=== PATIENT | male | born 2000 | race Caucasian/White ===

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

== ENCOUNTER 2020-05-02 18:18 | Emergency (ER) | payer OTHER ==
[2020-05-02 18:26] VITALS: RESP 18
[2020-05-02] MEDS ORDERED: IBUPROFEN 600 MG STARTER PACK 4 TAB BTL PO STA (18:33)
--- NOTE | 2020-05-02 19:08 | ED ---
Lower Extremity Injury HPI - General Chief Complaint: Extremity Injury, Lower Stated Complaint: R ankle/Foot injury Time Seen by Provider: 05/02/20 18:28 Source: patient Mode of arrival: ambulatory Limitations: no limitations - History of Present Illness Initial Comments: 20-year-old male patient presents to the emergency department today for evaluation of right ankle pain and swelling. Patient states that around 2:00 this afternoon he was in the backyard, and child was falling so he went to grab the child, slipped, and injured the right ankle. Patient states that the toe of his boot touched his hunter. Patient states he has had increased pain and swelling since the injury. He did take tylenol, elevated, and applied ice. He denies hitting his head, losing consciousness, or injury to the neck. Denies any numbness to the right. States he does have some tingling to the toes. States he did have a growth plate fracture to this foot as a child. Patient denies any headache, chest pain, shortness of breath, dizziness, weakness, abdominal pain, nausea, vomiting, or difficulties with bowel movements or urination. - Related Data Previous Rx's Medication Instructions Recorded Acetaminophen-Codeine 300-30mg 1 tab PO Q6H PRN #10 tablet 11/09/17 [Tylenol #3] Sulfamethox-Tmp 800-160Mg [Bactrim 2 tab PO Q12HR #40 tab 11/09/17 DS 800-160 mg] Docusate [Colace] 100 mg PO BID #20 capsule 11/16/17 HYDROcodone/APAP 7.5-325MG [[place] 1 each PO Q4H PRN #30 tab 11/16/17 7.5] Ibuprofen [Motrin] 600 mg PO Q8HR PRN #30 tab 10/16/18 Sulfamethoxazole/Trimethoprim 1 each PO BID #20 tablet 10/16/18 [Bactrim DS 800-160 mg] Odgrkajk-Rmxhgiutx-Df Otic 2 drops RIGHT EAR TID #1 bottle 06/23/19 [Cortisporin Otic Soln] Ibuprofen [Motrin] 600 mg PO Q8HR PRN #30 tab 05/02/20 Allergies Allergy/AdvReac Type Severity Reaction Status Date / Time No Known Allergies Allergy Verified 05/02/20 18:26 Review of Systems ROS Statement: Those systems with pertinent positive or pertinent negative responses have been documented in the HPI. ROS Other: All systems not noted in ROS Statement are negative. Past Medical History Past Medical History: Asthma, Hyperlipidemia, Hypertension Additional Past Medical History / Comment(s): ACTIVITY INDUCED ASTHMA, TRAUMATIC BRAIN INJURY AGE 15, SOME DEMEANOR CHANGES, SLIGHT SHORT TERM MEMORY LOSS History of Any Multi-Drug Resistant Organisms: None Reported Past Surgical History: Adenoidectomy, Appendectomy, Ear Surgery, Tonsillectomy Additional Past Surgical History / Comment(s): brain surgery (CRAINIOTOMY) Past Anesthesia/Blood Transfusion Reactions: Previous Problems w/ Anesthesia Additional Past Anesthesia/Blood Transfusion Reaction / Comment(s): MOM STATES WAKES UP ANGRY Past Psychological History: ADD/ADHD Smoking Status: Current some day smoker Past Alcohol Use History: None Reported Past Drug Use History: Marijuana - Past Family History Mother Family Medical History: No Reported History General Exam Limitations: no limitations General appearance: alert, in no apparent distress, other (This is a well- developed, well-nourished adult male patient in no acute distress. Vital signs upon presentation are temperature 98.5F, pulse 77, respirations 18, blood pressure 165/100, pulse ox 100% on room air.) Eye exam: Present: normal appearance, PERRL, EOMI. Absent: scleral icterus, conjunctival injection, periorbital swelling ENT exam: Present: normal exam, normal oropharynx, mucous membranes moist Neck exam: Present: normal inspection, full ROM, other (Nontender, no step-off, no deformity to firm midline palpation of the posterior cervical spine. Full range of motion without pain or limitation.). Absent: tenderness, meningismus, lymphadenopathy Respiratory exam: Present: normal lung sounds bilaterally. Absent: respiratory distress, wheezes, rales, rhonchi, stridor Cardiovascular Exam: Present: regular rate, normal rhythm, normal heart sounds. Absent: systolic murmur, diastolic murmur, rubs, gallop, clicks GI/Abdominal exam: Present: soft, normal bowel sounds. Absent: distended, tenderness, guarding, rebound, rigid Extremities exam: Present: full ROM, tenderness (Dorsal foot tenderness, bilateral malleoli or tenderness.), normal capillary refill, other (There is soft tissue swelling noted surrounding the right ankle, ecchymosis noted to the dorsal foot. Skin is otherwise pink, warm, dry. Cap refills less than 3 second s. Pedal and posttibial pulses are 2+.). Absent: normal inspection, pedal edema, joint swelling, calf tenderness Back exam: Present: normal inspection, other (Nontender, no step-off, no deformity to firm midline palpation of the thoracic and lumbar vertebrae. Full range of motion without pain or limitation.) Neurological exam: Present: alert, oriented X3, CN II-XII intact Psychiatric exam: Present: normal affect, normal mood Skin exam: Present: warm, dry, intact, normal color. Absent: rash Course Vital Signs 05/02/20 05/02/20 18:22 19:32 Temperature 98.5 F 99.2 F Pulse Rate 77 68 Respiratory 18 18 Rate Blood Pressure 165/100 161/87 O2 Sat by Pulse 100 99 Oximetry Medical Decision Making - Medical Decision Making 20-year-old male patient presented to the emergency department today for evaluation of right ankle and foot pain as well as soft tissue swelling. Patient did have an injury around 2 PM. Physical examination did reveal soft tissue swelling surrounding the right ankle with tenderness over the dorsal aspect of the foot and over the bilateral malleolus this. X-rays of the right ankle and foot were obtained and showed no acute fractures or dislocations. Patient symptoms are consistent with sprain of the ankle and the foot. He is placed in Eliud wrap and given an ankle stirrup splint. He will be discharged to follow-up with orthopedic specialty in 7-10 days of his symptoms have improved. Patient also had elevated blood pressures while in the department. He will be discharged to follow-up with the primary care physician, one was recommended to him for further management of this. He is advised to keep a log of his blood pressures for dosing on medication. Return parameters are discussed in detail. He verbalizes understanding and agrees with this plan. - Radiology Data Radiology results: report reviewed, image reviewed X-ray of the right foot is obtained, 3 views, impression by Dr. Sanchez shows negative right foot exam. 3 views of the right ankle are obtained. Report reviewed in its entirety. Impression by Dr. Sanchez shows negative right ankle exam. No fracture seen per Disposition Clinical Impression: Right ankle sprain, Right foot sprain Disposition: HOME SELF-CARE Condition: Good Instructions (If sedation given, give patient instructions): Ankle Sprain (ED), Foot Sprain (ED) Additional Instructions: Use eliud wrap and ankle splint for comfort and support. Use crutches to ambulate as needed. Keep leg elevated, keep ice applied, and rest. Follow up with your primary care physician for recheck in 1-2 days. Follow-up with publication specialist if pain symptoms persist beyond 7-10 days, they may want to repeat x- rays or do further imaging. Return to the emergency department immediately for any new, worsening, or concerning symptoms. Prescriptions: Ibuprofen [Motrin] 600 mg PO Q8HR PRN #30 tab PRN Reason: Pain Is patient prescribed a controlled substance at d/c from ED?: No Referrals: Kiran Malik DO [Doctor of Osteopathic Medicine] - 1-2 days Wallace Lunsford MD [STAFF PHYSICIAN] - 1-2 days Time of Disposition: 19:22
--- NOTE | 2020-05-02 19:14 | XR ---
EXAMINATION TYPE: XR foot complete RT DATE OF EXAM: 05/02/2020 COMPARISON: NONE HISTORY: Foot and ankle pain TECHNIQUE: 3 views FINDINGS: Metatarsals appear intact. I see no fracture nor dislocation. There are no erosions. Joint spaces are normal. IMPRESSION: Negative right foot exam.
--- NOTE | 2020-05-02 19:15 | XR ---
EXAMINATION TYPE: XR ankle complete RT DATE OF EXAM: 05/02/2020 COMPARISON: NONE HISTORY: Ankle pain. Foot pain TECHNIQUE: 3 views FINDINGS: Ankle mortise is anatomic. I see no fracture nor dislocation. There are no erosions. Joint spaces are normal. IMPRESSION: Negative right ankle exam. No fracture seen.
[2020-05-02 19:36] VITALS: BP 161/87; PULSE 68; TEMP 99.2
== END 2020-05-02 19:52 | disposition home or self-care (01) ==
LOC: EC 18:18
DX: S93.401A Sprain of unspecified ligament of right ankle, initial encounter (principal); S93.601A Unspecified sprain of right foot, initial encounter; F17.200 Nicotine dependence, unspecified, uncomplicated; Z90.49 Acquired absence of other specified parts of digestive tract; Z90.89 Acquired absence of other organs; W01.0XXA Fall on same level from slipping, tripping and stumbling without subsequent striking against object, initial encounter; Y93.89 Activity, other specified; Y92.89 Other specified places as the place of occurrence of the external cause
CPT/HCPCS: 73610; 73630; 99283; 29515; L4350

== ENCOUNTER 2020-05-27 15:18 | Emergency (ER) | payer OTHER ==
[2020-05-27] MEDS ORDERED: KETOROLAC 60 MG/2 ML VIAL IM STA (15:37)
--- NOTE | 2020-05-27 15:44 | ED ---
General Adult HPI - General Chief complaint: Chest Pain Stated complaint: chest pain Source: patient, RN notes reviewed, old records reviewed Mode of arrival: ambulatory Limitations: no limitations - History of Present Illness Initial comments: 20-year-old male patient presents to ED chief complaint of left-sided anterior chest wall pain. Patient reports that he is very active at his work. 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 Reports he has been having pain in his left pectoral region for the last 2 days. Reports that the pain is reproducible with range of motion and lifting. He denies any shortness of breath. Denies any other complaints. Systemic: Pt denies fatigue, fever/chills, rash. Pt denies weakness, night sweats, weight loss. Neuro: Pt denies headache, visual disturbances, syncope or pre-syncope. HEENT: Pt denies ocular discharge or irritation, otalgia, rhinorrhea, pharyngitis or notable lymphadenopathy. Cardiopulmonary: Pt denies SOB, heart palpitations, dyspnea on exertion. Abdominal/GI: Pt denies abdominal pain, n/v/d. : Pt denies dysuria, burning w/ urination, frequency/urgency. Denies new onset urinary or bowel incontinence. MSK: Pt denies myalgia, loss of strength or function in extremities. Neuro: Pt denies new onset weakness, paresthesias. - Related Data Home Medications Medication Instructions Recorded Confirmed No Known Home Medications 05/27/20 05/27/20 Allergies Allergy/AdvReac Type Severity Reaction Status Date / Time No Known Allergies Allergy Verified 05/27/20 15:41 Review of Systems ROS Statement: Those systems with pertinent positive or pertinent negative responses have been documented in the HPI. ROS Other: All systems not noted in ROS Statement are negative. Past Medical History Past Medical History: Asthma, Hyperlipidemia, Hypertension Additional Past Medical History / Comment(s): ACTIVITY INDUCED ASTHMA, TRAUMATIC BRAIN INJURY AGE 15, SOME DEMEANOR CHANGES, SLIGHT SHORT TERM MEMORY LOSS History of Any Multi-Drug Resistant Organisms: None Reported Past Surgical History: Adenoidectomy, Appendectomy, Ear Surgery, Tonsillectomy Additional Past Surgical History / Comment(s): brain surgery (CRAINIOTOMY) Past Anesthesia/Blood Transfusion Reactions: Previous Problems w/ Anesthesia Additional Past Anesthesia/Blood Transfusion Reaction / Comment(s): MOM STATES WAKES UP ANGRY Past Psychological History: ADD/ADHD Smoking Status: Current some day smoker Past Alcohol Use History: None Reported Past Drug Use History: Marijuana - Past Family History Mother Family Medical History: No Reported History General Exam - General Exam Comments Initial Comments: Constitutional: NAD, AOX3, Pt has pleasant affect. HEENT: NC/AT, trachea midline, neck supple, no lymphadenopathy. External ears appear normal, without discharge. Mucous membranes moist.EOM intact. There is no scleral icterus. No pallor noted. Cardiopulmonary: RRR, no murmurs, rubs or gallops, no JVD noted. Lungs CTAB in anterior and posterior tristan. No peripheral edema. Abdominal exam: Abdomen soft and non-distended. Abdomen non-tender to palpation in all 4 quadrants. Bowel sounds active in LLQ. No hepatosplenomegaly. No ecchymosis Neuro: CN II-XII grossly intact. No nuchal rigidity. No raccon eyes, no winters sign, no hemotympanum. MSK: No posterior calf tenderness bilaterally, homans sign negative bilaterally. Posterior tibialis and radial pulse +2 bilaterally. Sensation intact in upper and lower extremities. Full active ROM in upper and lower extremities, 5/5 stregnth. Left pectoral pain is reproducible by range of motion, resisted movements. Limitations: no limitations Course Vital Signs 05/27/20 15:20 Temperature 98.8 F Pulse Rate 92 Respiratory 18 Rate Blood Pressure 150/86 O2 Sat by Pulse 95 Oximetry Medical Decision Making - Medical Decision Making 20-year-old male patient is to pain and left pectoral region. In going on for the last 2 days. Patient will signs are stable, afebrile. Physical exam displayed left pectoral pain reproducible with resistant movement, range of motion. Pt reports this is the discomfort he was experiencing. 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 Patient presentation consistent with a muscle strain. EKG is nonischemic. Chest x-ray revealed no acute process. Patient symptoms are improved with Toradol. Patient has no shortness of breath. Will be discharged with follow-up with primary care provider and will return to ER if condition worsens. Case discussed with Dr. Gan. - EKG Data -: EKG Interpreted by Me (and Dr. gan ) EKG Comments: Ventricular rate 102, MD interval 1:30, QRS 102, QT/QTC 342/445. Sinus tachycardia, otherwise normal EKG. No concern for acute ischemia.. Disposition Clinical Impression: Muscle strain Disposition: HOME SELF-CARE Condition: Stable Instructions (If sedation given, give patient instructions): Muscle Strain (ED) Additional Instructions: Follow-up with primary care provider tomorrow. Use Tylenol and Motrin as needed for discomfort. Avoid strenuous upper body exercises until symptoms resolve. Return to ER if condition worsens. Is patient prescribed a controlled substance at d/c from ED?: No Referrals: None,Stated [Primary Care Provider] - 1-2 days Mykel Lawrence MD [REFERRING] - 1-2 days
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
[2020-05-27 16:56] VITALS: BP 154/93; PULSE 102; RESP 19; TEMP 98.7
== END 2020-05-27 16:56 | disposition home or self-care (01) ==
LOC: EC 15:18
DX: S29.011A Strain of muscle and tendon of front wall of thorax, initial encounter (principal); F17.200 Nicotine dependence, unspecified, uncomplicated
CPT/HCPCS: 93005; 71046; 99285; 96372; J1885

== ENCOUNTER 2022-01-01 14:21 | Emergency (ER) | payer OTHER ==
[2022-01-01 14:27] VITALS: BP 146/78; PULSE 76; RESP 16; TEMP 98.1
[2022-01-01] MEDS ORDERED: IBUPROFEN 800 MG TAB PO STA (14:34)
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
== END 2022-01-01 15:33 | disposition home or self-care (01) ==
LOC: EC 14:21
DX: M25.561 Pain in right knee (principal); I10 Essential (primary) hypertension; E78.5 Hyperlipidemia, unspecified; J45.909 Unspecified asthma, uncomplicated; F17.200 Nicotine dependence, unspecified, uncomplicated; F12.90 Cannabis use, unspecified, uncomplicated; V89.2XXA Person injured in unspecified motor-vehicle accident, traffic, initial encounter; Y92.410 Unspecified street and highway as the place of occurrence of the external cause
CPT/HCPCS: 99284

== ENCOUNTER 2023-10-18 10:30 | Emergency (ER) | payer OTHER ==
--- NOTE | 2023-10-18 11:10 | ED ---
General Adult HPI - General Stated complaint: Mental health Time Seen by Provider: 10/18/23 11:08 Source: patient, RN notes reviewed Mode of arrival: ambulatory Limitations: no limitations - History of Present Illness Initial comments: 23-year-old male presents emergency Department chief complaint racing thoughts. Patient states he is a he cannot shut off his brain. Denies being suicidal homicidal. Patient denies illicit drug use no alcohol abuse no physical complaints. Patient states he believes he has benign depression. - Related Data Previous Rx's Medication Instructions Recorded Ibuprofen [Motrin] 800 mg PO Q8H #30 tab 01/01/22 Allergies Allergy/AdvReac Type Severity Reaction Status Date / Time No Known Allergies Allergy Verified 01/01/22 14:27 Review of Systems ROS Statement: Those systems with pertinent positive or pertinent negative responses have been documented in the HPI. ROS Other: All systems not noted in ROS Statement are negative. Past Medical History Past Medical History: Asthma, Hyperlipidemia, Hypertension Additional Past Medical History / Comment(s): ACTIVITY INDUCED ASTHMA, TRAUMATIC BRAIN INJURY AGE 15, SOME DEMEANOR CHANGES, SLIGHT SHORT TERM MEMORY LOSS History of Any Multi-Drug Resistant Organisms: None Reported Past Surgical History: Adenoidectomy, Appendectomy, Ear Surgery, Tonsillectomy Additional Past Surgical History / Comment(s): brain surgery (CRAINIOTOMY) Past Anesthesia/Blood Transfusion Reactions: Previous Problems w/ Anesthesia Additional Past Anesthesia/Blood Transfusion Reaction / Comment(s): MOM STATES WAKES UP ANGRY Past Psychological History: ADD/ADHD Smoking Status: Current every day smoker Past Alcohol Use History: Occasional Past Drug Use History: Marijuana - Past Family History Mother Family Medical History: No Reported History General Exam - General Exam Comments Initial Comments: Visual Physical Exam Vital signs reviewed General: Well-appearing, nontoxic, no acute distress. Head: Normocephalic, atraumatic Eyes: PERRLA, EOMI ENT: Airway patent Chest: Nonlabored breathing Skin: No visual rash, normal skin tone Neuro: Alert and oriented 3 Musculoskeletal: No gross abnormalities Limitations: no limitations General appearance: alert, in no apparent distress Head exam: Present: atraumatic, normocephalic, normal inspection Eye exam: Present: normal appearance, PERRL, EOMI. Absent: scleral icterus, conjunctival injection, periorbital swelling ENT exam: Present: normal exam, normal oropharynx, mucous membranes moist Neck exam: Present: normal inspection, full ROM. Absent: tenderness, meningismus, lymphadenopathy Respiratory exam: Present: normal lung sounds bilaterally. Absent: respiratory distress, wheezes, rales, rhonchi, stridor Cardiovascular Exam: Present: regular rate, normal rhythm, normal heart sounds. Absent: systolic murmur, diastolic murmur, rubs, gallop, clicks GI/Abdominal exam: Present: soft, normal bowel sounds. Absent: distended, tenderness, guarding, rebound, rigid Neurological exam: Present: alert Psychiatric exam: Present: flat affect Course Vital Signs 10/18/23 10/18/23 11:04 14:20 Temperature 98.7 F Pulse Rate 64 72 Respiratory 18 18 Rate Blood Pressure 163/93 124/74 O2 Sat by Pulse 99 99 Oximetry Medical Decision Making - Medical Decision Making I completed the quick note portion of this chart signed Eren Dubose PA-C Was pt. sent in by a medical professional or institution ([facility], [facility], urgent care, hospital, or residential...) When possible be specific @ -No Did you speak to anyone other than the patient for history (EMS, parent, family, police, friend...)? What history was obtained from this source @ -No Did you review nursing and triage notes (agree or disagree)? Why? @ -I reviewed and agree with nursing and triage notes Were old charts reviewed (outside hosp., previous admission, EMS record, old EKG, old radiological studies, urgent care reports/EKG's, residential records)? Report findings @ -No old charts were reviewed Differential Diagnosis (chest pain, altered mental status, abdominal pain women, abdominal pain men, vaginal bleeding, weakness, fever, dyspnea, syncope, headache, dizziness, GI bleed, back pain, seizure, CVA, palpatations, mental health, musculoskeletal)? @ -nDifferential Mental Health Depression, anxiety, bipolar, psychosis, schizophrenia, borderline personality, situational depression, adjustment disorder, behavioral disorder, brain tumor, malingering, substance abuse, encephalopathy, medication reaction, dementia, hypothyroidism, degenerative neurologic disorder, lupus.... This is not meant to be all-inclusive liste EKG interpreted by me (3pts min.). @ -None X-rays interpreted by me (1pt min.). @ -None done CT interpreted by me (1pt min.). @ -None done U/S interpreted by me (1pt. min.). @ -None done What testing was considered but not performed or refused? (CT, X-rays, U/S, labs)? Why? @ -None What meds were considered but not given or refused? Why? @ -None Did you discuss the management of the patient with other professionals (professionals i.e. DrDanilo, PA, [facility], lab, RT, psych nurse, social service assistant, poultry feed supervisor, teacher, sheriff's officer, rn field case manager)? Give summary @ -EPS who evaluated the patient and recommend patient to be discharged. Was smoking cessation discussed for >3mins.? @ -No Was critical care preformed (if so, how long)? @ -No Were there social determinants of health that impacted care today? How? (Homelessness, low income, unemployed, alcoholism, drug addiction, transportation, low edu. Level, literacy, decrease access to med. care, nursing home, rehab)? @ -No Was there de-escalation of care discussed even if they declined (Discuss DNR or withdrawal of care, Hospice)? DNR status @ -No What co-morbidities impacted this encounter? (DM, HTN, Smoking, COPD, CAD, Cancer, CVA, ARF, Chemo, Hep., AIDS, mental health diagnosis, sleep apnea, morbid obesity)? @ -None Was patient admitted / discharged? Hospital course, mention meds given and route, prescriptions, significant lab abnormalities, going to OR and other pertinent info. @ -Discharge patient was evaluated by psychiatric services. Patient is stable for discharge return parameters were discussed. Undiagnosed new problem with uncertain prognosis? @ -No Drug Therapy requiring intensive monitoring for toxicity (Heparin, Nitro, Insulin, Cardizem)? @ -No Were any procedures done? @ -No Diagnosis/symptom? @ -Depression Acute, or Chronic, or Acute on Chronic? @ -Acute Uncomplicated (without systemic symptoms) or Complicated (systemic symptoms)? @ -Uncomplicated Side effects of treatment? @ -No Exacerbation, Progression, or Severe Exacerbation? @ -No Poses a threat to life or bodily function? How? (Chest pain, [place], [place], pneumonia, PE, COPD, DKA, ARF, appy, cholecystitis, CVA, Diverticulitis, Homicidal, Suicidal, threat to staff... and all critical care pts) @ -No - Lab Data Lab Results 10/18/23 Range/Units 11:54 Urine Opiates Screen Not Detected (NotDetected) Ur Oxycodone Screen Not Detected (NotDetected) Urine Methadone Screen Not Detected (NotDetected) Ur Propoxyphene Screen Not Detected (NotDetected) Ur Barbiturates Screen Not Detected (NotDetected) U Tricyclic Antidepress Not Detected (NotDetected) Ur Phencyclidine Scrn Not Detected (NotDetected) Ur Amphetamines Screen Not Detected (NotDetected) U Methamphetamines Scrn Not Detected (NotDetected) U Benzodiazepines Scrn Not Detected (NotDetected) Urine Cocaine Screen Not Detected (NotDetected) U Marijuana (THC) Screen Detected H (NotDetected) Disposition Clinical Impression: Depression Disposition: HOME SELF-CARE Condition: Stable Additional Instructions: Please return to the Emergency Department if symptoms worsen or any other concerns. Is patient prescribed a controlled substance at d/c from ED?: No Referrals: None,Stated [Primary Care Provider] - 1-2 days Forms: Outpatient Counseling, Area PCPs Time of Disposition: 14:16
[2023-10-18 11:19] VITALS: RESP 18; TEMP 98.7
[2023-10-18] MEDS ORDERED: NICOTINE 21MG/24HR PATCH TRANSDERM STA (12:14)
[2023-10-18 12:43] LABS: Amphetamine Screen,Urine Not Detected (NotDetected); Barbiturate Screen,Urine Not Detected (NotDetected); Benzodiazepines Screen,Urine Not Detected (NotDetected); Cocaine Screen,Urine Not Detected (NotDetected); Methadone Screen, Urine Not Detected (NotDetected); Opiate Screen,Urine Not Detected (NotDetected); Oxycodone Screen, Urine Not Detected (NotDetected); Phencyclidine Screen,Urine Not Detected (NotDetected); Tricyclic Antidepressant,Urine Not Detected (NotDetected); Urn Cannabinoid Scrn Detected (NotDetected)
[2023-10-18 14:45] VITALS: BP 124/74; PULSE 72
== END 2023-10-18 14:22 | disposition home or self-care (01) ==
LOC: EC 10:30
DX: F32.A Depression, unspecified (principal); J45.909 Unspecified asthma, uncomplicated; I10 Essential (primary) hypertension; F17.200 Nicotine dependence, unspecified, uncomplicated; F12.90 Cannabis use, unspecified, uncomplicated
CPT/HCPCS: 82075; 80306; 99285; S4990

== ENCOUNTER → 2024-06-11 | Outpatient (CLI) | payer OTHER ==
--- NOTE | 2024-06-11 16:02 | XR ---
EXAMINATION TYPE: XR elbow complete RT DATE OF EXAM: 06/11/2024 CLINICAL HISTORY: pain TECHNIQUE: Frontal, lateral and oblique images of the right elbow are obtained. COMPARISON: None. FINDINGS: There is no acute fracture/dislocation evident of the elbow. No abnormal fat pad signs ar e seen. The overlying soft tissue appears unremarkable. IMPRESSION: There is no acute fracture or dislocation of the elbow. ICD 10 NO FRACTURE, INITIAL EVALUATION
== END | disposition home or self-care (01) ==
LOC: RADXRMAIN 15:15
PROVIDERS: ATTEND Emergency Medicine
DX: S53.401A Unspecified sprain of right elbow, initial encounter (principal)